=== PATIENT | female | born 1970 | race Caucasian/White ===

== ENCOUNTER → 2024-03-31 | Emergency (ER) | payer OTHER ==
[~2024-03-31] VITALS: Ht 160 cm; Wt 58.1 kg
[~2024-03-31] MED LIST: CIPR5DRO18 RIGHTEYE
[2024-03-31 22:11] VITALS: BP 110/69; TEMP 97.8; O2SAT 98
== END | disposition home or self-care (01) ==
LOC: ER 21:38
DX: H10.9 Unspecified conjunctivitis (principal)